=== PATIENT | male | born 1995 | race Caucasian/White ===

== ENCOUNTER 2023-03-29 07:39 | Emergency (ER) | payer MEDICAID, OTHER ==
[~2023-03-29] VITALS: Ht 195.6 cm; Wt 120.0 kg
[2023-03-29 09:04] VITALS: BP 159/84; RESP 17; TEMP 97.7; O2SAT 99
[2023-03-29 09:35] VITALS: PULSE 51
[2023-03-29] MEDS ORDERED: SODIUM CHLORIDE 0.9% 1,000 ML IV ONE (09:45)
[2023-03-29] MEDS ORDERED: NEOMYCIN-BACITRACIN-POLYM UNITDOSE PKG TOP OINT TOP ONE (10:00)
[2023-03-29] MEDS ORDERED: TETANUS-DIPTH-ACEL PERTUSSIS 0.5ML SYR Tdap IM ONE (10:00)
[2023-03-29] MEDS ORDERED: HYDROcodone-ACET 10/325MG TAB PO ONE (10:00)
[2023-03-29] MEDS ORDERED: cefTRIAXone 1GM/50ML D5W 50 ML IV ONE (10:00)
[2023-03-29] MEDS ORDERED: NEOMOIN6 EX (11:00)
[2023-03-29] MEDS ORDERED: HYDR-4902 PO (11:00)
== END 2023-03-29 11:15 | disposition home or self-care (01) ==
LOC: ER 07:39
DX: T23.032A Burn of unspecified degree of multiple left fingers (nail), not including thumb, initial encounter (principal); T23.021A Burn of unspecified degree of single right finger (nail) except thumb, initial encounter; W86.8XXA Exposure to other electric current, initial encounter; Y93.89 Activity, other specified; Y92.89 Other specified places as the place of occurrence of the external cause; Y99.0 Civilian activity done for income or pay
CPT/HCPCS: 90471; 90715; 93005; 96365; 99284; J0696; J7030